=== PATIENT | male | born 1980 | race African-American/Black ===

== ENCOUNTER 2020-06-21 18:34 | Emergency (ER) | payer MEDICAID, OTHER ==
[2020-06-21] MEDS ORDERED: Boostrix 0.5 ML (Tdap) VIAL ONE (18:49)
[2020-06-21] MEDS ORDERED: Bacitracin 1 PK ONE (18:49)
[2020-06-21] MEDS ORDERED: Doxycycline 100 MG CAP ONE (19:15)
[2020-06-21] MEDS ORDERED: Clindamycin 150 MG CAP ONE (19:15)
[2020-06-21 23:25] LABS: HBSAB Concentration Less than 8.00 mIU/mL; Hep B Surf AB Non-Reactive (NonReactive); Hep C IgG Ab Non-Reactive (NonReactive); Hep C Index 0.11 S/CO (0-0.79)
[2020-06-24 12:38] LABS: HIV-1 Quantitative, RNA PCR <20 copies/mL (.)
== END 2020-06-21 19:25 | disposition home or self-care (01) ==
LOC: BURERS 18:34
DX: S01.452A Open bite of left cheek and temporomandibular area, initial encounter (principal); W50.3XXA Accidental bite by another person, initial encounter
CPT/HCPCS: 36415; 86706; 86803; 87536; 90471; 90715